=== PATIENT | female | born 2005 | race African-American/Black ===

== ENCOUNTER 2024-01-16 09:52 | Emergency (ER) | payer MEDICAID ==
[~2024-01-16] VITALS: Ht 167.6 cm; Wt 79.0 kg
[2024-01-16 10:01] VITALS: BP 128/67; PULSE 92; TEMP 97.9; O2SAT 99
[2024-01-16] MEDS ORDERED: ONDA-243 PO (11:36)
[2024-01-16 11:54] VITALS: RESP 18
== END 2024-01-16 11:55 | disposition home or self-care (01) ==
LOC: ER 09:53
DX: J06.9 Acute upper respiratory infection, unspecified (principal); Z20.822 Contact with and (suspected) exposure to COVID-19; Z79.899 Other long term (current) drug therapy
CPT/HCPCS: 36415; 87811; 99283